=== PATIENT | male | born 1950 | race Asian ===

== ENCOUNTER 2019-04-01 15:53 | Emergency (ER) | payer OTHER, MEDICARE ==
[~2019-04-01] VITALS: Ht 167.6 cm; Wt 64.4 kg
[2019-04-01 15:57] VITALS: BP 160/93; TEMP 97.9
[2019-04-01 16:30] LABS: PLATELET COUNT 188 K/uL (142-355)
[2019-04-01 16:41] LABS: POTASSIUM 4.7 mmol/L (3.6-5.2)
[2019-04-01] MEDS ORDERED: ASA LOW DOSE81 MG PO (18:20)
[2019-04-01] MEDS ORDERED: BUSP15TAB2 PO (18:21)
[2019-04-01] MEDS ORDERED: AMLODIPINE BESYLATE PO (18:21)
[2019-04-01] MEDS ORDERED: TYLENOL325 MG PO (18:23)
[2019-04-01] MEDS ORDERED: MIRTAZAPINE7.5 MG PO (18:24)
[2019-04-01] MEDS ORDERED: MINIPRESS2 MG PO (18:24)
[2019-04-01] MEDS ORDERED: TRAZ100T PO (18:25)
[2019-04-01] MEDS ORDERED: DONE5TAB PO (18:26)
[2019-04-01] MEDS ORDERED: SEROQUEL300 MG PO (18:26)
[2019-04-01] MEDS ORDERED: SYSTANE OVERNIG0.3 % OPTH (18:29)
[2019-04-01] MEDS ORDERED: DOCU100C10 PO (18:29)
[2019-04-01] MEDS ORDERED: ALBU90AE13 INH (18:30)
[2019-04-01] MEDS ORDERED: ENSURE PO (18:31)
[2019-04-01] MEDS ORDERED: AEROCHAMBER (18:34)
[2019-04-01] MEDS ORDERED: MIRALAX3350 N1 PO (18:35)
== END 2019-04-01 17:35 | disposition still patient (30) ==
LOC: ED 15:53 → EDBD 15:53 → ED 17:35
PROVIDERS: Emergency Medicine
DX: R45.851 Suicidal ideations (principal); I44.4 Left anterior fascicular block; Z04.6 Encounter for general psychiatric examination, requested by authority
CPT/HCPCS: 80053; 80307; 81000; 84484; 85027; 93005; 99285